=== PATIENT | male | born 1955 | race Caucasian/White ===

== ENCOUNTER 2020-06-28 15:15 | Emergency (ER) | payer OTHER ==
[~2020-06-28] VITALS: Ht 195.6 cm; Wt 88.5 kg
[~2020-06-28 15:15] MED LIST: ESKALITH CR450 MG PO
[2020-06-28] MEDS ORDERED: COZAAR 25 MG TA25 M2 PO (15:52)
[2020-06-28] MEDS ORDERED: HYDROCHLOROTHIA25 M2 PO (15:52)
[2020-06-28 16:19] LABS: HEMOGLOBIN 13.8 gm/dL (14.0-18.0); MCH 34.4 pg (26.0-34.0); MCHC 35.4 g/dL (28.0-37.0); MCV 97.2 fL (80.0-100.0); PLATELET COUNT 236 thou/uL (150-400); RBC 4.01 mil/uL (4.50-6.00); RDW 12.7 % (10.5-14.5); WBC 4.3 thou/uL (4.0-11.0)
[2020-06-28 16:26] LABS: ANION GAP 11 mmol/L (7-16); BUN 19 mg/dL (7-18); CALCIUM 9.8 mg/dL (8.5-10.1); CHLORIDE 100 mmol/L (98-107); CO2 26 mmol/L (21-32); CREATININE 1.1 mg/dL (0.7-1.3); GLUCOSE 100 mg/dL (74-106); SODIUM 137 mmol/L (136-145)
[2020-06-28 16:37] LABS: ALBUMIN 3.9 g/dL (3.4-5.0); DIRECT BILIRUBIN 0.1 mg/dL (<0.1-0.2); SGOT 33 U/L (15-37); SGPT 16 U/L (30-65); TOTAL BILIRUBIN 0.4 mg/dL (0.2-1.0); TOTAL PROTEIN 7.8 g/dL (6.4-8.2); TROPONIN-I <0.06 ng/mL (<0.06)
--- NOTE | 2020-06-28 17:05 | EKG ---
[facility] [place] [address] ELECTROCARDIOGRAM REPORT Name: LAZARO MULTANI Room #: REG [facility]#: [id number] Admission: 06/28/20 Attend Phys: Discharge: Date of : 59 Report #: [id number] THIS REPORT FOR: cc: Malvin Fox MD, Christopher B. MD Santiago, Patrick MD [facility] ~ THIS REPORT FOR: //name// [facility] ED Test Date: 2020-06-28 Test Time: 15:54:25 Pat Name: LAZARO MULTANI Department: Room: Gender: Division Engineer: no : 1955 Requested By: Radha Henderson Order Number: [id number] MD: Sandeep Velasquez Measurements Intervals [place] Rate: 75 P: 59 NV: 145 QRS: 43 QRSD: 87 T: 55 QT: 372 QTc: 416 Interpretive Statements Sinus rhythm Probable left atrial enlargement No previous ECG available for comparison Electronically Signed On 06-28-2020 17:04:54 STEAM TABLE ATTENDANT by Sandeep Velasquez [email or web address] <ELECTRONICALLY SIGNED> By: Sandeep Velasquez MD, [facility] 06/28/20 1704 1554 155 Sandeep Velasquez MD, FACC /EPI
[2020-06-28 17:14] LABS: ABSOLUTE NEUTROPHILS 2.4 thou/uL (1.4-8.2); ANISOCYTOSIS 1+
[2020-06-28 18:12] VITALS: BP 129/81
== END 2020-06-28 18:23 | disposition home or self-care (01) ==
LOC: ER 15:15
PROVIDERS: Emergency Medicine
DX: U07.1 COVID-19 (principal); Z79.899 Other long term (current) drug therapy